=== PATIENT | female | born 2005 | race Hispanic/Latino ===

== ENCOUNTER 2023-04-10 14:21 | Emergency (ER) | payer MEDICAID ==
[~2023-04-10] VITALS: Ht 149.9 cm; Wt 101.2 kg
[2023-04-10] MEDS ORDERED: LIDOCAINE 1%-EPI 1:100,000 20 ML VIAL IJ SCH (16:00)
[2023-04-10 17:38] VITALS: BP 142/72; PULSE 82; RESP 20; O2SAT 100
== END 2023-04-10 17:36 | disposition home or self-care (01) ==
LOC: EDH 15:36
DX: S61.512A Laceration without foreign body of left wrist, initial encounter (principal); X58.XXXA Exposure to other specified factors, initial encounter; Y93.89 Activity, other specified; Y92.89 Other specified places as the place of occurrence of the external cause; Y99.8 Other external cause status
CPT/HCPCS: 12006; 99282; J3490

== ENCOUNTER 2023-07-09 22:37 | Emergency (ER) | payer MEDICAID ==
[~2023-07-09] VITALS: Ht 165.1 cm; Wt 104.3 kg
[2023-07-09] MEDS: IBUPROFEN 600 MG TABLET PO ONE (23:40)
[2023-07-09] MEDS: LIDOCAINE HCL 1% 20 ML VIAL INJ SCH (23:41)
[2023-07-09] MEDS: TETANUS/DIPHTHERIA TOXOID [ADULT] 0.5 ML VIAL IM ONE (23:43)
[2023-07-10 00:58] VITALS: BP 123/73; PULSE 88; RESP 17; O2SAT 98
== END 2023-07-10 01:12 | disposition home or self-care (01) ==
LOC: EDH 22:37
DX: S51.812A Laceration without foreign body of left forearm, initial encounter (principal); E03.9 Hypothyroidism, unspecified; F20.9 Schizophrenia, unspecified
CPT/HCPCS: 12006; 90471; 90714